=== PATIENT | male | born 1985 | race Caucasian/White ===

== ENCOUNTER 2025-03-27 13:57 | Emergency (ER) | payer MEDICAID ==
[~2025-03-27] VITALS: Ht 175.3 cm; Wt 68.2 kg
[~2025-03-27 13:57] MED LIST: TRAZ-257 PO
[2025-03-27 14:42] LABS: PLATELET COUNT (AUTO) 355 K/uL (150-450); RED BLOOD CELL COUNT(AUTO) 4.21 MIL/uL (4.50-5.90); RED CELL DISTRIBUTION WIDTH 16.3 % (11.5-14.5); WHITE BLOOD COUNT (AUTO) 9.8 K/uL (4.5-11.0)
[2025-03-27 14:50] LABS: CALCIUM, TOTAL 8.4 mg/dL (8.8-10.5); CREATININE 0.79 mg/dL (0.60-1.30); GLOMERULAR FILTR. RATE CALC > 60 mL/min (>60); GLUCOSE,RANDOM 83 mg/dL (70-110); SODIUM SERUM 140 mmol/L (136-145); UREA NITROGEN, BLOOD 6 mg/dL (7-18)
[2025-03-27 14:56] VITALS: TEMP 98.1
[2025-03-27 14:57] LABS: COVID AG,FIA SOURCE NASAL SWAB
[2025-03-27 15:25] LABS: SARS-COV2 (COVID) ANTIGEN,FIA Negative (Negative)
[2025-03-27] MEDS ORDERED: ACET-2247 PO (16:28)
[2025-03-27] MEDS ORDERED: MULT-1203 PO (16:28)
[2025-03-27] MEDS ORDERED: OMEP-148 PO (16:28)
[2025-03-27] MEDS ORDERED: NALT50TA33 PO (16:28)
[2025-03-27] MEDS ORDERED: HYDR-4061 PO (16:28)
[2025-03-27] MEDS ORDERED: ONDA-243 SL (16:28)
[2025-03-27] MEDS ORDERED: FOLI-130 PO (16:28)
[2025-03-27] MEDS ORDERED: CHLO25CA6 PO (16:28)
[2025-03-27] MEDS ORDERED: NICO-650 TP (16:28)
[2025-03-27] MEDS ORDERED: [UNRECOGNIZED DRUG - CODE] (16:28)
[2025-03-27] MEDS ORDERED: SENN-376 PO (16:28)
[2025-03-27] MEDS ORDERED: HYDR-5256 PO (16:28)
[2025-03-27] MEDS ORDERED: PANT-31 PO (16:28)
[2025-03-27] MEDS ORDERED: NICO-703 TD (16:28)
[2025-03-27] MEDS ORDERED: THIA100T80 PO (16:28)
[2025-03-27] MEDS ORDERED: GuaiFENesin/D-METHORPHAN [SUGAR-FREE] 200-20MG/10 ML SYRUP UDCUP PO PRN (17:45)
[2025-03-27] MEDS ORDERED: ZOLPIDEM TARTRATE 10 MG TABLET PO PRN (17:45)
[2025-03-27] MEDS ORDERED: ACETAMINOPHEN 325 MG TABLET PO PRN (17:45)
[2025-03-27] MEDS ORDERED: LOPERAMIDE HCL 2 MG CAPSULE PO PRN ×2 (17:45)
[2025-03-27] MEDS ORDERED: MAGNESIUM HYDROXIDE SUSPENSION 30 ML UDCUP PO PRN (17:45)
[2025-03-27] MEDS ORDERED: MAG HYDROX/ALUMINUM HYD/SIMETH ES 30 ML SUSPENSION UDCUP PO PRN (17:45)
[2025-03-27] MEDS ORDERED: PROMETHAZINE HCL 25 MG TABLET PO PRN (17:45)
[2025-03-27 18:11] VITALS: BP 117/79; PULSE 87; RESP 16; O2SAT 97
[2025-03-27] MEDS: HYDROCODONE/ACETAMINOPHEN 5-325 MG TABLET PO ONE (19:23)
[2025-03-27] MEDS ORDERED: DIVALPROEX SODIUM 250 MG ER TABLET PO SCH (21:00)
[2025-03-27] MEDS ORDERED: GABAPENTIN 300 MG CAPSULE PO SCH (21:00)
[2025-03-27] MEDS ORDERED: MELATONIN 5 MG TABLET PO SCH (21:00)
[2025-03-28] MEDS ORDERED: MULTIVITAMINS WITH MINERALS, THERAPEUTIC TABLET PO SCH (09:00)
[2025-03-28] MEDS ORDERED: FOLIC ACID 1 MG TABLET PO SCH (09:00)
[2025-03-28] MEDS ORDERED: CYANOCOBALAMIN 1,000 MCG/ML VIAL IM ONE (09:00)
[2025-03-28] MEDS ORDERED: DULoxetine HCL 20 MG CAPSULE PO SCH (09:00)
[2025-03-28] MEDS ORDERED: NALTREXONE HCL 50 MG TABLET PO SCH (09:00)
[2025-03-28] MEDS ORDERED: THIAMINE 100 MG TABLET PO SCH (09:00)
[2025-03-29] MEDS ORDERED: TUBERCULIN, PURIFIED PROTEIN DERIVATIVE 5 TU/0.1 ML SYRINGE ID ONE (09:00)
== END 2025-03-27 20:17 | disposition home or self-care (01) ==
LOC: EMS 13:57
DX: F32.9 Major depressive disorder, single episode, unspecified (principal); F10.129 Alcohol abuse with intoxication, unspecified; F41.9 Anxiety disorder, unspecified; F32.A Depression, unspecified; R45.851 Suicidal ideations; F17.210 Nicotine dependence, cigarettes, uncomplicated; Z90.49 Acquired absence of other specified parts of digestive tract; Z20.822 Contact with and (suspected) exposure to COVID-19; Z79.899 Other long term (current) drug therapy; Y90.8 Blood alcohol level of 240 mg/100 ml or more
CPT/HCPCS: 99285; 87426; 80048; 85025; 36415; G0480; J3420

== ENCOUNTER 2025-04-06 22:03 | Emergency (ER) | payer MEDICAID ==
[~2025-04-06] VITALS: Ht 172.7 cm; Wt 68.2 kg
[~2025-04-06 22:03] MED LIST changes: +ACET-2247 PO; +CHLO25CA6 PO; +FOLI-130 PO; +HYDR-4061 PO; +HYDR-5256 PO; +MULT-1203 PO; +NALT50TA33 PO; +NICO-650 TP; +NICO-703 TD; +OMEP-148 PO; +ONDA-243 SL; +PANT-31 PO; +SENN-376 PO; +THIA100T80 PO; +[UNRECOGNIZED DRUG - CODE]
[2025-04-06 22:42] VITALS: TEMP 98.1
[2025-04-06 23:57] LABS: COVID AG,FIA SOURCE NASAL SWAB
[2025-04-07 00:04] LABS: PLATELET COUNT (AUTO) 319 K/uL (150-450); RED BLOOD CELL COUNT(AUTO) 3.92 MIL/uL (4.50-5.90); RED CELL DISTRIBUTION WIDTH 17.4 % (11.5-14.5); WHITE BLOOD COUNT (AUTO) 10.8 K/uL (4.5-11.0)
[2025-04-07 00:07] LABS: SARS-COV2 (COVID) ANTIGEN,FIA Negative (Negative)
[2025-04-07 00:19] LABS: CALCIUM, TOTAL 7.5 mg/dL (8.8-10.5); CREATININE 0.65 mg/dL (0.60-1.30); GLOMERULAR FILTR. RATE CALC > 60 mL/min (>60); GLUCOSE,RANDOM 91 mg/dL (70-110); SODIUM SERUM 141 mmol/L (136-145); UREA NITROGEN, BLOOD 7 mg/dL (7-18)
[2025-04-07] MEDS: SODIUM CHLORIDE 0.9% 1,000 ML IV ONE (01:03)
[2025-04-07] MEDS: HYDROCODONE/ACETAMINOPHEN 5-325 MG TABLET PO ONE (07:17)
[2025-04-07 13:22] VITALS: BP 140/97; PULSE 99; RESP 16; O2SAT 99
[2025-04-07] MEDS ORDERED: NALT50TA33 PO (13:29)
[2025-04-07] MEDS ORDERED: GABA-1181 PO (13:29)
== END 2025-04-07 14:35 | disposition home or self-care (01) ==
LOC: EMS 22:03
DX: F32.9 Major depressive disorder, single episode, unspecified (principal); F10.229 Alcohol dependence with intoxication, unspecified; R45.851 Suicidal ideations; F41.9 Anxiety disorder, unspecified; F32.A Depression, unspecified; F17.210 Nicotine dependence, cigarettes, uncomplicated; F10.239 Alcohol dependence with withdrawal, unspecified; Z90.49 Acquired absence of other specified parts of digestive tract; Z79.899 Other long term (current) drug therapy; Z20.822 Contact with and (suspected) exposure to COVID-19; Y90.8 Blood alcohol level of 240 mg/100 ml or more
CPT/HCPCS: 99285; 87426; 80048; 85025; 36415; G0480